=== PATIENT | male | born 1965 | race Caucasian/White ===

== ENCOUNTER 2017-05-26 14:49 | Emergency (ER) | payer BC, OTHER ==
[2017-05-26 15:05] VITALS: TEMP 97.7; BMI 46.0
--- NOTE | 2017-05-26 16:44 | PDOC ---
History of Present Illness - General Chief Complaint: Bone Injury Stated Complaint: FRACTURE OF LEFT DISTAL FIBULA Time Seen by Provider: 05/26/17 15:10 History Source: Patient, Spouse Exam Limitations: No Limitations - History of Present Illness Initial Comments: 05/26/17 16:39 CHIEF COMPLAINT: Left ankle fracture which happened last night HISTORY OF PRESENT ILLNESS: 51-year-old man without significant past medical history was walking on the wet grass last night when he twisted his left ankle. He felt severe pain and this morning he went to the urgent care center where an x-ray showed a fibula fracture. A splint was placed and he was sent here to the emergency department for further evaluation. 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 HEAD: Normal with no signs of trauma. EYES: Pupils equal, round and reactive to light, extraocular movements intact, sclera anicteric, conjunctiva clear. EXTREMITIES: The left lower extremity is splinted on arrival. The splint was removed. There is distal fibular tenderness. The skin is intact. Pulses are intact. Capillary refill is normal. There is no deformity, but there is localized soft tissue swelling of the ankle. NEUROLOGICAL: Normal speech, walking with nonweightbearing, crutches used. PSYCH: Normal mood, normal affect. SKIN: Warm, Dry, normal turgor, no rashes or lesions noted. Procedures - Splinting Splint Location: Left: Ankle (left ankle posterior splint and stirrup splint applied) Medical Decision Making - Medical Decision Making 05/26/17 16:41 The patient comes in with a disc containing x-rays from the knee to the ankle on the left side. These images were obtained just prior to arrival to the ED, sent from the [facility] urgent care center. There is a Turner B fracture of the fibula. The mortise view shows the mortise is intact. Impression: Turner B left ankle fracture, mortise is intact. Patient called his own orthopedist himself from the emergency department, and the orthopedist has agreed to see him for further evaluation on Sunday at 9 AM. Patient has a prior relationship with this orthopedist and he is happy to see him. Follow up with Dr. Santos Tineo. *DC/Admit/Observation/Transfer Diagnosis at time of Disposition: Closed left ankle fracture Qualifiers: Encounter type: initial encounter Qualified Code(s): S82.892A - Other fracture of left lower leg, initial encounter for closed fracture - Discharge Dispostion Disposition: HOME Condition at time of disposition: Stable Admit: No - Referrals - Patient Instructions Printed Discharge Instructions: How to Use Crutches, DI for Ankle Fracture Additional Instructions: Today you were evaluated for a left ankle Turner B fracture. A splint was placed to protect the ankle. You should rest at home, keep the ankle elevated, apply ice packs over the splint for 30 minutes every few hours. Take Advil as needed for pain. Use the crutches, no weightbearing on the left ankle, when you get up to use the bathroom. Follow-up with the orthopedic doctor on Sunday as scheduled. Return to the emergency department for any severe or progressive symptoms. - Post Discharge Activity
[2017-05-26] MEDS ORDERED: METOPROLOL SUCCINATE 25 MG TAB.SR.24H (FP) PO ONE (16:59)
[2017-05-26] MEDS ORDERED: METOPROLOL SUCCINATE 25 MG TAB.SR.24H (FP) ONE (17:01)
[2017-05-26 17:39] VITALS: BP 145/100; PULSE 97
== END 2017-05-26 17:39 | disposition home or self-care (01) ==
LOC: FER 14:49
PROC: 2W3RX1Z Immobilization of Left Lower Leg using Splint (ICD-10-PCS; principal; 2017-05-26)
DX: S82.892A Other fracture of left lower leg, initial encounter for closed fracture (principal); X58.XXXA Exposure to other specified factors, initial encounter; Y93.89 Activity, other specified; Y92.9 Unspecified place or not applicable
CPT/HCPCS: 99283-25